=== PATIENT | male | born 1965 | race Caucasian/White ===

== ENCOUNTER 2023-07-14 10:23 | Outpatient (REF) | payer OTHER, SELFPAY ==
[2023-07-14 14:13] LABS: MANUAL DIFF FLAG NO
[2023-07-14 14:20] LABS: Basophils Absolute Auto 0.1 X10*3/uL (0.0-0.2); Eosinophils Absolute Auto 0.2 X10*3/uL (0.0-0.4); Hematocrit 46.9 % (42.0-52.0); Hemoglobin 15.9 g/dl (14.0-18.0); Imm Gran Abs Auto 0.01 X10*3/uL (0.00-0.03); Imm Gran Pct Auto 0.2 % (0.0-0.4); Lymphocytes Absolute Auto 1.8 X10*3/uL (1.2-4.9); Lymphocytes Percent Auto 31.8 % (20-40); Mean Corpuscular HGB Conc 33.9 g/dl (31.0-36.0); Mean Corpuscular Hemoglobin 32.9 pg (27.0-33.0); Mean Corpuscular Volume 96.9 fL (80.0-98.0); Mean Platelet Volume 10.9 fL (9.4-12.4); Monocytes Absolute Auto 0.5 X10*3/uL (0.1-1.2); Monocytes Percent Auto 7.9 % (2-11); Neutrophils Absolute Auto 3.2 x10*3/uL (2.0-8.3); Neutrophils Percent Auto 56.1 % (45-73); Platelet Count 208 X10*3/uL (160-400); Red Blood Count 4.84 X10*6/uL (4.60-5.80); Red Cell Distribution Width 12.4 % (11.0-16.0); White Blood Count 5.7 X10*3/uL (4.8-10.8)
[2023-07-14 14:45] LABS: Alanine Aminotransferase 25 U/L (0-40); Albumin Level 4.3 g/dL (3.5-5.0); Alkaline Phosphatase 50 U/L (39-117); Anion Gap 9 (12-20); Aspartate Amino Transferase 26 U/L (5-37); Bilirubin Direct 0.3 mg/dL (0.0-0.5); Bilirubin Total 1.3 mg/dL (0.0-1.0); Blood Urea Nitrogen 18 mg/dL (9-16); Calcium 9.9 mg/dL (8.4-10.2); Carbon Dioxide 27 mmol/L (22-29); Chloride 108 mmol/L (96-108); Cholesterol 302 mg/dL (<200); Estimated Glomerular Filt Rate > 60; Glucose Fasting 88 mg/dL (60-99); HDL Cholesterol 49 mg/dL (>40); LDL Cholesterol Calculated 234 mg/dL (<100); Potassium 4.1 mmol/L (3.3-5.1); Sodium 140 mmol/L (135-145); Triglycerides 99 mg/dL (<150)
[2023-07-15 08:57] LABS: ~Hepatitis C Antibody Nonreactive (Nonreactive)
[2023-07-18 16:23] LABS: HIV RNA PCR Qn Copies Not Detected Copies/mL; HIV RNA PCR Qn Log Copies Not Detected Log cps/mL
== END 2023-07-14 10:24 | disposition home or self-care (01) ==
LOC: CF 10:23
PROVIDERS: Visit Provider Student in an Organized Health Care Education/Training Program
DX: Z00.00 Encounter for general adult medical examination without abnormal findings (principal); E80.6 Other disorders of bilirubin metabolism; E78.5 Hyperlipidemia, unspecified
CPT/HCPCS: 36415; 80048; 80061; 80076; 85025; 86803; 87536; 87900

== ENCOUNTER 2023-10-11 10:44 | Outpatient (REF) | payer OTHER, SELFPAY ==
[2023-10-11 15:18] LABS: Anion Gap 13 (12-20); Blood Urea Nitrogen 16 mg/dL (9-16); Calcium 9.4 mg/dL (8.4-10.2); Carbon Dioxide 26 mmol/L (22-29); Chloride 106 mmol/L (96-108); Cholesterol 309 mg/dL (<200); Estimated Glomerular Filt Rate > 60; Glucose Fasting 87 mg/dL (60-99); HDL Cholesterol 48 mg/dL (>40); LDL Cholesterol Calculated 242 mg/dL (<100); Potassium 3.9 mmol/L (3.3-5.1); Sodium 141 mmol/L (135-145); Triglycerides 97 mg/dL (<150)
== END 2023-10-11 10:45 | disposition home or self-care (01) ==
LOC: HO.CHCLDS 10:44
PROVIDERS: Visit Provider Student in an Organized Health Care Education/Training Program
DX: Z00.00 Encounter for general adult medical examination without abnormal findings (principal); E80.6 Other disorders of bilirubin metabolism; Z71.3 Dietary counseling and surveillance
CPT/HCPCS: 36415; 80048; 80061

== ENCOUNTER 2024-07-11 09:43 | Outpatient (REF) | payer OTHER, SELFPAY ==
[2024-07-11 13:47] LABS: MANUAL DIFF FLAG NO
[2024-07-11 14:02] LABS: Basophils Absolute Auto 0.1 X10*3/uL (0.0-0.2); Eosinophils Absolute Auto 0.2 X10*3/uL (0.0-0.4); Eosinophils Percent Auto 2.9 % (0-4); Hematocrit 45.6 % (42.0-52.0); Hemoglobin 15.7 g/dl (14.0-18.0); Imm Gran Abs Auto 0.01 X10*3/uL (0.00-0.03); Imm Gran Pct Auto 0.2 % (0.0-0.4); Lymphocytes Absolute Auto 1.8 X10*3/uL (1.2-4.9); Lymphocytes Percent Auto 30.4 % (20-40); Mean Corpuscular HGB Conc 34.4 g/dl (31.0-36.0); Mean Corpuscular Hemoglobin 32.7 pg (27.0-33.0); Mean Platelet Volume 10.4 fL (9.4-12.4); Monocytes Absolute Auto 0.5 X10*3/uL (0.1-1.2); Neutrophils Absolute Auto 3.4 x10*3/uL (2.0-8.3); Neutrophils Percent Auto 57.5 % (45-73); Platelet Count 229 X10*3/uL (160-400); Red Cell Distribution Width 11.9 % (11.0-16.0); White Blood Count 5.9 X10*3/uL (4.8-10.8)
[2024-07-11 14:23] LABS: Alanine Aminotransferase 22 U/L (0-40); Albumin Level 4.2 g/dL (3.5-5.0); Alkaline Phosphatase 49 U/L (39-117); Anion Gap 12 (12-20); Aspartate Amino Transferase 24 U/L (5-37); Bilirubin Direct 0.4 mg/dL (0.0-0.5); Bilirubin Total 1.2 mg/dL (0.0-1.0); Blood Urea Nitrogen 17 mg/dL (9-16); Calcium 9.2 mg/dL (8.4-10.2); Carbon Dioxide 27 mmol/L (22-29); Chloride 106 mmol/L (96-108); Estimated Glomerular Filt Rate > 60; Glucose Fasting 87 mg/dL (60-99); Potassium 3.7 mmol/L (3.3-5.1); Sodium 141 mmol/L (135-145); Total Protein 6.7 g/dL (6.5-8.0)
[2024-07-11 14:43] LABS: TSH reflex Free T4 0.72 uIU/mL (0.32-4.0)
[2024-07-13 10:31] LABS: Cholesterol 276 mg/dL (<200); HDL Cholesterol 46 mg/dL (>40); LDL Cholesterol Calculated 214 mg/dL (<100); Triglycerides 82 mg/dL (<150)
== END 2024-07-11 09:44 | disposition home or self-care (01) ==
LOC: HO.CHCLDS 09:43
PROVIDERS: Visit Provider Internal Medicine
DX: E78.5 Hyperlipidemia, unspecified (principal)
CPT/HCPCS: 36415; 80048; 80061; 80076; 84443; 85025

== ENCOUNTER 2024-10-18 09:07 | Outpatient (REF) | payer OTHER, SELFPAY ==
[2024-10-18 14:51] LABS: Anion Gap 10 (12-20); Blood Urea Nitrogen 15 mg/dL (9-16); Calcium 8.8 mg/dL (8.4-10.2); Carbon Dioxide 28 mmol/L (22-29); Chloride 107 mmol/L (96-108); Estimated Glomerular Filt Rate > 60; Glucose Random 92 mg/dL (60-115); Potassium 3.7 mmol/L (3.3-5.1); Sodium 141 mmol/L (135-145)
[2024-10-18 15:08] LABS: TSH reflex Free T4 1.14 uIU/mL (0.32-4.0)
[2024-10-19 03:44] LABS: HIV AB/AG Nonreactive (Nonreactive); HIV Num 1 0.07 S/CO (0.00-0.99); ~HepC Num1 0.06 S/CO (0.00-0.79); ~Hepatitis C Antibody Nonreactive (Nonreactive)
== END 2024-10-18 09:08 | disposition home or self-care (01) ==
LOC: HO.CHCLDS 09:07
PROVIDERS: Visit Provider Student in an Organized Health Care Education/Training Program
DX: Z00.00 Encounter for general adult medical examination without abnormal findings (principal); E78.2 Mixed hyperlipidemia
CPT/HCPCS: 36415; 80048; 84443; 86803; 87389

== ENCOUNTER 2025-04-09 09:44 | Outpatient (REF) | payer OTHER, SELFPAY ==
--- OUTSIDE RECORDS SUMMARY | 2025-04-09 10:51 | XMS_ITS | Clinical Summary ---
Author Organization [employer] [facility] Address [address] [place] [address] Care Team Providers Care Cargo Service Agent Name Role Phone Marilee Holley MD Primary Care Provider [phone] Allergies Active Allergy Reactions Criticality Noted Date Comments Statins 07/14/2023 Other reaction(s): Muscle cramps, Muscle cramps Medications omega-3 (Fish Oil) 1000 MG capsule Take 1,000 mg by mouth in the morning. Active niacin 100 MG tablet Take 100 mg by mouth with breakfast. Active ezetimibe (Zetia) 10 MG tablet Take 1 tablet (10 mg) by mouth Once per day. 30 tablet 11 07/25/20 24 025 Active pseudoephedrin e (Sudafed) 30 MG tablet Take 1 tablet (30 mg) by mouth every 4 (four) hours if needed for congestion for up to 10 days. 30 tablet 10/18/20 24 Active azelastine (Astelin) 0.1 % nasal spray Administer 1 spray into each nostril 2 times daily. Use in each nostril as directed 30 mL 12 10/18/20 24 025 Discontinued Active Problems Problem Noted Date Diagnosed Date Hyperlipidemia 06/05/2024 Encounters Date Type Department Care Team Description 04/02/2025 Orders Only [facility]EDS [address] [place] [address] Marilee Holley MD Mixed hyperlipidemia (Primary Dx) from Last 3 Months Immunizations Immunization Administration Dates Next Due Tdap 08/21/2024 Family History Medical History Relation Name Comments Heart failure Father Breast cancer Mother Relation Name Status Comments Father Mother Alive Sister Alive Social History Tobacco Use Types Packs/Day Years Used Date Smoking Tobacco: Never Smokeless Tobacco: Never Tobacco Cessation:Counseling Given: Not Answered Alcohol Use Standard Drinks/Week Comments Defer 0 (1 standard drink = 0.6 oz pur e alcohol) Depression Answer Date Recorded Patient Health Questionnaire-9 Score 0 07/14/2023 Housing Stability Answer Date Recorded What is your housing situation today? Not on tapan e 08/21/[address] you li ve. Do you have problems with any of the following? None of the above 08/21/2024 Food Insecurity Answer Date Recorded Within the past 12 months, y ou worried that your food would run out before you got money to buy more: Never True 08/21/2024 Within the past 12 months,th e food you bought just didn't last and you didn't have enough money to get more: Never True Transportation Answer Date Recorded In the past 12 months, has l ack of transportation kept you from medical appts, meetings, work or from getting things needed for daily living? No 08/21/2024 Utilities Answer Date Recorded In the past 12 months, has t he electric, gas, oil or water company threatened to shut off services in your home? No 08/21/2024 Depression Answer Date Recorded Patient Health Questionnaire-2 Score 0 07/14/2023 Internet Access Answer Date Recorded Internet Access Q1 Yes 08/21/2024 Internet Access Q2 Not on file 08/21/2024 Sex and Gender Information Value Date Recorded Sex Assigned at Male 07/12/2023 2:00 PM EDT Legal Sex Male 1:58 PM EDT Gender Identity Male 07/12/2023 1:59 PM EDT Sexual Orientation Straight 07/12/2023 2: 00 PM EDT Last Filed Vital Signs Vital Sign Reading Time Taken Comments Blood Pressure 142/86 10/18/2024 8:44 AM EST Pulse 62 10/18/2024 8:44 AM EST Temperature 36.6 ??C (97.9 ??F) 10/18/2024 8:44 AM ES T Respiratory Rate 12 10/18/2024 8:44 AM EST Oxygen Saturation 96% 10/18/2024 8:44 AM EST Inhaled Oxygen Concentration - - Weight 88.9 kg (196 lb) 10/18/2024 8:44 AM EST Height 182.9 cm (6') 10/18/2024 8:44 AM EST Body Mass Index 26.58 10/18/2024 8:44 AM EST Plan of Treatment Upcoming Encounters Date Type Department Care Team ([facility] st Contact Info) Description 04/30/2025 9:00 AM EDT Office Visit [facility] PEDS [address] [place] [address] Marilee Holley MD [address] [place] [address] Health Maintenance Due Date Last Done Comments CT Colonography 1967 Colonoscopy 1967 Colorectal Cancer Screening 1967 FIT DNA/Cologuard 1967 FIT 1967 FOBT 1967 Sigmoidoscopy 1967 Disability Screening 1967 Alcohol/Substance Use Screening 1979 Hepatitis B Vaccines (1 of 3 - 19+ 3-dose series) 1986 Pneumococcal Vaccine: 50+ Years (1 of 1 - PCV) 2017 Zoster Vaccines (1 of 2) 2017 COVID-19 Vaccine ( - 2023-2 5 season) 2024 01/13/2021, 12/16/2020 Depression Screening 07/14/2024 07/14/2023, 07/14/2023 SDOH Screening 07/14/2024 07/14/2023 Tobacco Screening 06/05/2025 06/05/2024 Influenza Vaccine (Season Ended) 2025 Lipid Panel 07/11/2029 07/11/2024, 10/11/2023, 07/14/2023 DTaP/Tdap/Td Vaccines (2 - T d or Tdap) 08/21/2034 08/21/2024 RSV Patients and Patients Aged 60 years or older (1 - 1-dose 75+ series) 2042 HIV Screening Completed 10/18/2024 Hepatitis C Screening Completed 10/18/2024 , 07/14/2023 HIB Vaccines Aged Out No longer eligi ble based on patient's age to complete this topic HPV Vaccines Aged Out No longer eligi ble based on patient's age to complete this topic Hepatitis A Vaccines Aged Out No long er eligible based on patient's age to complete this topic IPV Vaccines Aged Out No longer eligi ble based on patient's age to complete this topic Meningococcal B Vaccine Aged Out No l onger eligible based on patient's age to complete this topic Meningococcal Vaccine Aged Out No ronald jose manuel eligible based on patient's age to complete this topic RSV under 20 months Aged Out No longe r eligible based on patient's age to complete this topic Rotavirus Vaccines Aged Out No longer eligible based on patient's age to complete this topic Procedures Procedure Name Priority Date/Time Associated Diagnosis Comments HEPATITIS C AB W/REFL TO HCV RNA, QN, PCR Routine 10/18/2024 9:09 AM EST PE (physical exam), annual HIV 1/2 ANTIGEN/ANTIBODY, FOURTH GENERATION W/RFL Routine 10/18/2024 9:09 AM EST PE (physical exam), annual LIPID PANEL, STANDARD Routine 07/11/2024 9:44 AM EDT from Last 3 Months or Most Recently Relevant to Health Maintenance Results * Hepatitis C Antibody with Reflex to HCV, RNA, Quantitative, Real-Time PCR (10/18/2024 9:09 AM EST) Hepatitis C Antibody Nonreactive Nonreactive [facility] Comment:Antibodies to HCV no t detected; does not exclude early acuteHCV infection. Blood Venous blood specimen / Unknown 10/18/2024 9:09 AM EST 10/18/2024 2:28 PM EST us Marilee Holley MD LAB BLOOD ORDERABLES Final Resul t [facility] [address] [place] [phone] * HIV-1/2 Antigen and Antibodies, Fourth Generation, with Reflexes (10/18/2024 9:09 AM EST) HIV AB/AG Nonreactive Nonreactive [facility] Comment:HIV-1 p24 Ag and/or HIV-1/HIV-2 Ab not detected.A test result that is nonreactive does not exclude thepossibility of exposure to or infection with HIV-1 and/orHIV-2. Nonreactive results in this assay for individualswith prior exposure to HIV-1 and/or HIV-2 may be due toantigen and antibody levels that are below the limit ofdetection of this assay.The [employer] HIV Ag/Ab Combo assay result andsupplemental assay results should be interpreted inconjunction with the patient's clinical presentation,history and other laboratory results. If the results areinconsistent with clinical evidence, additional testing issuggested to confirm the result. Blood Venous blood specimen / Unknown 10/18/2024 9:09 AM EST 10/18/2024 2:28 PM EST us Marilee Holley MD LAB BLOOD ORDERABLES Final Resul t [facility] [address] [place] [phone] [phone] * (ABNORMAL) Lipid Panel, Standard (07/11/2024 9:44 AM EDT) Triglycerides 82 <150 mg/dL [facility] Comment:Desirable Triglyceri de: less than 150 mg/dLBorderline High Triglyceride 150-199 mg/dLHigh Triglyceride: 200-499 mg/dLVery High Triglyceride: greater than or equal to 5OO mg/dL Cholesterol 276(H) <200 mg/dL [facility] Comment:Desirable Cholestero l: less than 200 mg/dLBorderline High Cholesterol: 200-239 mg/dLHigh Cholesterol: greater than 239 mg/dL LDL Cholesterol Calculated 214(H) <100 mg/dL [facility] Comment:Desirable LDL: less than 100 mg/dLNear Optimal/Above Optimal LDL: 110- 129 mg/dLBorderline High LDL: 130-159 mg/dLHigh LDL: 160-189 mg/dLVery High LDL: greater than or equal to 190 mg/dL HDL Cholesterol 46 >40 mg/dL [facility] Comment:Desirable HDL: great er than 40 mg/dL Note: This HDL assay may give artificially low results in patients with liver disease. 07/11/2024 9:44 AM EDT 07/11/2024 1:46 PM EDT us Nelda Jenkins MD LAB BLOOD ORDERABLES Final Re sult [facility] [address] [place] [address] [phone] from Last 3 Months or Most Recently Relevant to Health Maintenance Insurance [employer] Care Teams Cargo Service Agent Relationship Specialty Start Date End Date Marilee Holley MD [address] [place] [phone] PCP - General Family Medicine 07/12/23
[2025-04-09 15:01] LABS: Alanine Aminotransferase 28 U/L (0-40); Albumin Level 4.4 g/dL (3.5-5.0); Alkaline Phosphatase 53 U/L (39-117); Anion Gap 9 (12-20); Aspartate Amino Transferase 28 U/L (5-37); Bilirubin Direct 0.3 mg/dL (0.0-0.5); Bilirubin Total 1.3 mg/dL (0.0-1.0); Blood Urea Nitrogen 13 mg/dL (9-16); Calcium 9.2 mg/dL (8.4-10.2); Carbon Dioxide 31 mmol/L (22-29); Chloride 106 mmol/L (96-108); Cholesterol 266 mg/dL (<200); Estimated Glomerular Filt Rate > 60; Glucose Random 91 mg/dL (60-115); HDL Cholesterol 41 mg/dL (>40); LDL Cholesterol Calculated 209 mg/dL (<100); Potassium 3.9 mmol/L (3.3-5.1); Sodium 142 mmol/L (135-145); Total Protein 6.6 g/dL (6.5-8.0); Triglycerides 82 mg/dL (<150)
== END 2025-04-09 09:45 | disposition home or self-care (01) ==
LOC: HO.CHCLDS 09:44
PROVIDERS: Visit Provider Student in an Organized Health Care Education/Training Program
DX: E78.2 Mixed hyperlipidemia (principal)
CPT/HCPCS: 36415; 80048; 80061; 80076

== ENCOUNTER 2025-07-24 08:53 | Outpatient (REF) | payer OTHER, SELFPAY ==
--- NOTE | ~2025-07-24 | US_ITS ---
EXAMINATION: US ABDOMEN COMPLETE CLINICAL INFORMATION: Fatty liver.. COMPARISON: None available. TECHNIQUE: Real-time ultrasound of the abdomen using grayscale technique. FINDINGS: PANCREAS: No peripancreatic fluid collections. ABDOMINAL AORTA: The proximal, and distal segments are normal in caliber. INFERIOR VENA CAVA: Visualized portions are normal. LIVER: Liver measures 19 cm. No nodular surface contour. Coarse echotexture. There is a 3.7 cm lobulated anechoic lesion with peripheral echogenic abnormality. No flow on color Doppler interrogation. No intrahepatic biliary ductal dilatation. GALLBLADDER: Fluid-filled without distention. Gallbladder wall measures 3 mm. No pericholecystic fluid collection. COMMON BILE DUCT: 4 mm. RIGHT KIDNEY: 14 cm. Normal echotexture. Normal renal cortical thickness. No hydronephrosis. There is a 1 cm exophytic anechoic lesion in the upper pole without nodular components were flow on color Doppler interrogation.. LEFT KIDNEY: 13 cm. Normal echotexture. Normal renal cortical thickness. No hydronephrosis. No solid or cystic lesion. SPLEEN: 12 cm no focal mass.. FREE FLUID: None. US/US abdomen complete IMPRESSION: Hepatosplenomegaly. 3.7 cm cystic lesion, right hepatic lobe. Recommend dedicated dynamic enhanced MRI liver. 1 cm simple cyst, right kidney. No cholelithiasis. No ascites. No hydronephrosis. Electronically signed by: Franko Plasencia MD 07/24/2025 10:59 AM EDT
--- OUTSIDE RECORDS SUMMARY | 2025-07-24 10:27 | XMS_ITS | Encounter Summary ---
Author Organization [employer] Address [address] [place] [address] Care Team Providers Care Manager Vehicle Name Role Phone Marilee Holley MD Primary Care Provider [phone] Reason for Visit * Reason Onset Date Comments Appointment Request 08/10/2024 Encounter Details Date Type Department Care Team ([facility] st Contact Info) Description 08/10/2024 Telephone [facility] MEDICINE [address] [place] [address] Marilee Holley MD [address] [place], [place] [phone] Appointment Request Social History Tobacco Use Types Packs/Day Years Used Date Smoking Tobacco: Never Smokeless Tobacco: Never Alcohol Use Standard Drinks/Week Comments Defer 0 (1 standard drink = 0.6 oz pur e alcohol) Depression Answer Date Recorded Patient Health Questionnaire-9 Score 0 07/14/2023 Housing Stability Answer Date Recorded What is your housing situation today? I have sabinamaria luz reina 08/25/[address] you li ve. Do you have problems with any of the following? None of the above 08/25/2023 Food Insecurity Answer Date Recorded Within the past 12 months, y ou worried that your food would run out before you got money to buy more: Never True 08/25/2023 Within the past 12 months,th e food you bought just didn't last and you didn't have enough money to get more: Never True Transportation Answer Date Recorded In the past 12 months, has l ack of transportation kept you from medical appts, meetings, work or from getting things needed for daily living? No 08/25/2023 Utilities Answer Date Recorded In the past 12 months, has t he electric, gas, oil or water company threatened to shut off services in your home? No 08/25/2023 Depression Answer Date Recorded Patient Health Questionnaire-2 Score 0 07/14/2023 Sex and Gender Information Value Date Recorded Sex Assigned at Male 07/12/2023 2:00 PM EDT Legal Sex Male 1:58 PM EDT Gender Identity Male 07/12/2023 1:59 PM EDT Sexual Orientation Straight 07/12/2023 2: 00 PM EDT documented as of this encounter Miscellaneous Notes * Telephone Encounter - Marilee Holley MD - 08/22/2024 8:56 AM EDT ascending * Telephone Encounter - Malia Hall - 08/21/2024 1:53 PM EDT [place] [facility] [place] and was asked if family history of aortic aneurysm is ascending or descending. Please advise, thank you. 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
--- OUTSIDE RECORDS SUMMARY | 2025-07-24 10:27 | XMS_ITS | Clinical Summary ---
Author Organization [facility] Address [address] [facility] [address] [place] [address] Care Team Providers Care Paint Spray Inspector Name Role Phone Marilee Holley MD Primary Care Provider [phone] Allergies Active Allergy Reactions Criticality Noted Date Comments Statins 07/14/2023 Other reaction(s): Muscle cramps, Muscle cramps Medications omega-3 (Fish Oil) 1000 MG capsule Take 1,000 mg by mouth in the morning. Active niacin 100 MG tablet Take 100 mg by mouth with breakfast. Active ezetimibe (Zetia) 10 MG tablet Take 1 tablet (10 mg) by mouth Once per day. 30 tablet 11 07/25/2024 Active Active Problems Problem Noted Date Diagnosed Date Hyperlipidemia 06/05/2024 Encounters Date Type Department Care Team Description 04/30/2025 9:00 AM EDT Office Visit [facility] MED & PEDS [address] [place] [address] Marilee Holley MD Mixed hyperlipidemia (Primary Dx); Fatty liver 04/30/2025 Travel 04/23/2025 Patient Outreach [facility] MEDICINE [address] [place] [address] Marilee Holley MD Pre-visit Planning (SDVT screening unable to complete. ) from Last 3 Months Immunizations Immunization Administration [...] Sign Reading Time Taken Comments Blood Pressure 137/86 04/30/2025 9:21 AM EDT Pulse 68 04/30/2025 9:21 AM EDT Temperature 37.1 C (98.7 F) 04/30/2025 9:21 AM EDT Respiratory Rate 20 04/30/2025 9:21 AM EDT Oxygen Saturation 96% 10/18/2024 8:44 AM EST Inhaled Oxygen Concentration - - Weight 88 kg (194 lb) 04/30/2025 9:21 AM EDT Height 182.9 cm (6') 04/30/2025 9:21 AM EDT Body Mass Index 26.31 04/30/2025 9:21 AM EDT Plan of Treatment Health Maintenance Due Date Last Done Comments CT Colonography 1967 Colonoscopy 1967 Colorectal Cancer Screening 1967 FIT DNA/Cologuard 1967 FIT 1967 FOBT 1967 Sigmoidoscopy 1967 Disability Screening 1967 Alcohol/Substance Use Screening 1979 Hepatitis A Vaccines (1 of 2 - Risk 2-dose series) 1986 Hepatitis B Vaccines (1 of 3 - 19+ 3-dose series) 1986 Pneumococcal Vaccine: 50+ Years (1 of 1 - PCV) 2017 Zoster Vaccines (1 of 2) 2017 Depression Screening 07/14/2024 07/14/2023, 07/14/20 23 SDOH Screening 07/14/2024 07/14/2023 Tobacco Screening 06/05/2025 06/05/2024 COVID-19 Vaccine ( - season) 2025 01/13/2021, 12/16/2020 Influenza Vaccine (#1) 2025 Lipid Panel 04/09/2030 04/09/2025, 07/01, 10/11/2023, Additional history exists DTaP/Tdap/Td Vaccines (2 - Td or Tdap) 08/21/2034 08/21/2024 RSV Patients and Patients Aged 60 years or older (1 - 1-dose 75+ series) 2042 HIV Screening Completed 10/18/2024 Hepatitis C Screening Completed 10/18/2024, 023 HIB Vaccines Aged Out No longer eligi [...] Procedure Name Priority Date/Time Associated Diagnosis Comments LIPID PANEL, STANDARD Routine 04/09/2025 12:00 AM EDT Mixed hyperlipidemia HEPATITIS C AB W/REFL TO HCV RNA, QN, PCR Routine 10/18/2024 9:09 AM EST PE (physical exam), annual HIV 1/2 ANTIGEN/ANTIBODY, FOURTH GENERATION W/RFL Routine 10/18/2024 9:09 AM EST PE (physical exam), annual from Last 3 Months or Most Recently Relevant to Health Maintenance Results * (ABNORMAL) Lipid Panel, Standard (04/09/2025 12:00 AM EDT) Triglycerides 82 <150 mg/dL [facility] Comment:Desirable Triglyceri de: less than 150 mg/dLBorderline High Triglyceride 150-199 mg/dLHigh Triglyceride: 200-499 mg/dLVery High Triglyceride: greater than or equal to 5OO mg/dL Cholesterol 266(H) <200 mg/dL [facility] Comment:Desirable Cholestero l: less than 200 mg/dLBorderline High Cholesterol: 200-239 mg/dLHigh Cholesterol: greater than 239 mg/dL LDL Cholesterol Calculated 209(H) <100 mg/dL [facility] Comment:Desirable LDL: less than 100 mg/dLNear Optimal/Above Optimal LDL: 110- 129 mg/dLBorderline High LDL: 130-159 mg/dLHigh LDL: 160-189 mg/dLVery High LDL: greater than or equal to 190 mg/dL HDL Cholesterol 41 >40 mg/dL [facility] Comment:Desirable HDL: great er than 40 mg/dL Note: This HDL assay may give artificially low results in patients with liver disease. Blood Venous blood specimen / Unknown 04/09/2025 04/09/2025 us Marilee Holley MD LAB BLOOD ORDERABLES Final Resul t [facility] [address] [place] [phone] * Hepatitis C Antibody with Reflex to HCV, RNA, Quantitative, Real-Time PCR (10/18/2024 9:09 AM EST) Hepatitis C Antibody Nonreactive Nonreactive [facility] Comment:Antibodies to HCV no t detected; does not exclude early acuteHCV infection. Blood Venous blood specimen / Unknown 10/18/2024 9:09 AM EST 10/18/2024 2:28 PM EST Marilee Holley MD LAB BLOOD ORDERABLES Final Resul t Performing Organization Address [facility] Co de Phone Number [facility] [address] [place] [phone] [phone] * HIV-1/2 Antigen and Antibodies, Fourth Generation, with Reflexes (10/18/2024 9:09 AM EST) HIV AB/AG Nonreactive Nonreactive [facility] Comment:HIV-1 p24 Ag and/or HIV-1/HIV-2 Ab not detected.A test result that is nonreactive does not exclude thepossibility of exposure to or infection with HIV-1 and/orHIV-2. Nonreactive results in this assay for individualswith prior exposure to HIV-1 and/or HIV-2 may be due toantigen and antibody levels that are below the limit ofdetection of this assay.The [email or web address] HIV Ag/Ab Combo assay result andsupplemental assay results should be interpreted inconjunction with the patient's clinical presentation,history and other laboratory results. If the results areinconsistent with clinical evidence, additional testing issuggested to confirm the result. Blood Venous blood specimen / Unknown 10/18/2024 9:09 AM EST 10/18/2024 2:28 PM EST Marilee Holley MD LAB BLOOD ORDERABLES Final Resul t Performing Organization Address [facility] Co de Phone Number [facility] [address] [place] [address] [phone] from Last 3 Months or Most Recently Relevant to Health [place] [id number] Care Teams Paint Spray Inspector Relationship Specialty Start Date End Date Marilee Holley MD [address] [place] [address] PCP - General Family Medicine 07/12/23
== END 2025-07-24 08:54 | disposition home or self-care (01) ==
LOC: HO.HMGCX 08:53
PROVIDERS: PCP Student in an Organized Health Care Education/Training Program; Visit Provider Student in an Organized Health Care Education/Training Program
DX: K76.0 Fatty (change of) liver, not elsewhere classified (principal)
CPT/HCPCS: 76700

== ENCOUNTER → 2025-07-24 08:55 | Outpatient (BNV) | payer OTHER, SELFPAY | PROVIDERS: PCP Student in an Organized Health Care Education/Training Program; Visit Provider Radiology Diagnostic Radiology | DX: R16.2 Hepatomegaly with splenomegaly, not elsewhere classified (principal) | CPT/HCPCS: 76700 ==

== ENCOUNTER 2025-10-21 07:18 | Outpatient (REF) | payer OTHER, SELFPAY ==
--- NOTE | ~2025-10-21 | MR_ITS ---
EXAMINATION: MR ABDOMEN WITHOUT IV CONTRAST HISTORY: LIVER MASS, PT REFUSES CONTRAST COMPARISON: Correlation is made with an abdominal ultrasound dated 07/24/2025. TECHNIQUE: Axial in and out of phase T1-weighted gradient echo, axial diffusion weighted, and axial and coronal HASTE T2 with fat saturation images were obtained through the abdomen. The patient refused intravenous contrast administration. FINDINGS: Liver: There is no loss of signal intensity in the liver on opposed phase imaging to suggest steatosis. There is a 3.6 x 3.0 x 2.4 cm probable septated cyst in the right lobe. Scattered smaller probable cysts are noted throughout the liver. There is no intrahepatic biliary dilatation. Gallbladder/biliary tree: No gallstones are identified. The common bile duct is normal in caliber. No intraluminal filling defects are identified to suggest choledocholithiasis. Spleen: The spleen is unremarkable. Pancreas: The pancreas is unremarkable without intravenous contrast. The pancreatic duct is normal in caliber. Adrenals: The adrenal glands are unremarkable. Kidneys: There are tiny probable bilateral renal cysts. There is no hydronephrosis. Lymph nodes: There is no retroperitoneal lymphadenopathy in the upper abdomen. Fluid: There is no ascites in the upper abdomen. Visualized bowel: The visualized small and large bowel loops are unremarkable in appearance. Visualized bones: The visualized bones demonstrate normal marrow signal intensity. There is a mild compression deformity of T8. MR/MR abdomen wo con IMPRESSION: 3.6 x 3.0 x 2.4 cm probable septated cyst in the right lobe of the liver. Evaluation is limited by lack of intravenous contrast material. Continued follow-up with ultrasound is recommended. Electronically signed by: Ludin Aguilar MD 10/21/2025 09:03 AM [facility]
--- OUTSIDE RECORDS SUMMARY | 2025-10-21 07:28 | XMS_ITS | Clinical Summary ---
Author Organization [facility] Address [address] [place] [address] [address] [address] Care Team Providers Care Chiropractor Sole Practitioner Name Role Phone Aravind Herzog CNP Primary Care Provider [phone] Allergies Active Allergy Reactions Criticality Noted Date [...] Encounters Date Type Department Care Team Description 10/02/2025 Orders Only [facility] [address] [place] [address] Aravind Herzog CNP Liver mass (Primary Dx) 09/25/2025 Orders Only [facility] [address] [place], [place] [phone] Aravind Herzog CNP Fatty liver (Primary Dx); Liver mass 09/25/2025 Telephone [facility] [facility] [address] [place], [place] [phone] Aravind Herzog CNP MRI LIVER ORDER 08/12/2025 Results Follow-Up [facility] [address] [place] [address] Marilee Holley MD US Abdomen Complete 08/12/2025 Orders Only [facility] [address] [place] [address] Marilee Holley MD Hepatic cyst (Primary Dx) from Last 3 Months Immunizations [...] Years (1 of 1 - PCV) 2017 RSV Patients and Patients Aged 60 years or older (1 - Risk 50-74 years 1-dose series) 2017 Zoster Vaccines (1 of 2) 2017 Depression Screening 07/14/2024 07/14/2023, 07/14/20 23 SDOH Screening 07/14/2024 07/14/2023 Tobacco Screening 06/05/2025 06/05/2024 COVID-19 Vaccine ( - season) 2025 01/13/2021, 12/16/2020 Influenza Vaccine (#1) 2025 Lipid Panel 04/09/2030 04/09/2025, 07/01, 10/11/2023, Additional history exists DTaP/Tdap/Td Vaccines (2 - Td or Tdap) 08/21/2034 08/21/2024 HIV Screening Completed 10/18/2024 Hepatitis C Screening [...] Procedure Name Priority Date/Time Associated Diagnosis Comments US ABDOMEN COMPLETE Routine 07/24/2025 8 :58 AM EDT Fatty liver LIPID PANEL, STANDARD Routine 04/09/2025 12:00 AM EDT Mixed hyperlipidemia HEPATITIS C AB W/REFL TO HCV RNA, QN, PCR Routine 10/18/2024 9:09 AM EST PE (physical exam), annual HIV 1/2 ANTIGEN/ANTIBODY, FOURTH GENERATION W/RFL Routine 10/18/2024 9:09 AM EST PE (physical exam), annual from Last 3 Months or Most Recently Relevant to Health Maintenance Results * US Abdomen Complete (07/24/2025 8:58 AM EDT) Anatomical Region Laterality Modality Abdomen Ultrasound 07/24/2025 8:58 AM EDT Narrative 07/24/2025 11:02 AM EDT [facility] [address] [place] [address] [place] [address] Ultrasound Report Signed Patient: Jodi Marion MR#: [id number] 7 : 1965 Acct:[id number] Age/Sex: 60 / M ADM Date: 07/24/25 Loc: HO.HMGCX Attending Dr: Marilee Holley MD Ordering Physician: Marilee Holley MD Date of Service: 07/24/25 Procedure(s): US abdomen complete Accession Number(s): [id number] cc: Marilee Holley MD Reason for Exam: fatty liver EXAMINATION: US ABDOMEN COMPLETE CLINICAL INFORMATION: Fatty liver.. COMPARISON: None available. TECHNIQUE: Real-time ultrasound of the abdomen using grayscale technique. FINDINGS: PANCREAS: No peripancreatic fluid collections. ABDOMINAL AORTA: The proximal, and distal segments are normal in caliber. INFERIOR VENA CAVA: Visualized portions are normal. LIVER: Liver measures 19 cm. No nodular surface contour. Coarse echotexture. There is a 3.7 cm lobulated anechoic lesion with peripheral echogenic abnormality. No flow on color Doppler interrogation. No intrahepatic biliary ductal dilatation. GALLBLADDER: Fluid-filled without distention. Gallbladder wall measures 3 mm. No pericholecystic fluid collection. COMMON BILE DUCT: 4 mm. RIGHT KIDNEY: 14 cm. Normal echotexture. Normal renal cortical thickness. No hydronephrosis. There is a 1 cm exophytic anechoic lesion in the upper pole without nodular components were flow on color Doppler interrogation.. LEFT KIDNEY: 13 cm. Normal echotexture. Normal renal cortical thickness. No hydronephrosis. No solid or cystic lesion. SPLEEN: 12 cm no focal mass.. FREE FLUID: None. US/US abdomen complete IMPRESSION: Hepatosplenomegaly. 3.7 cm cystic lesion, right hepatic lobe. Recommend dedicated dynamic enhanced MRI liver. 1 cm simple cyst, right kidney. No cholelithiasis. No ascites. No hydronephrosis. Electronically signed by: Franko Plasencia MD 07/24/2025 10:59 AM EDT Dictated By: Franko Horn MD Signed By: <Electronically signed by Franko Saenz MD in OV> 07/24/25 1059 DD/ 0858 TD/TT: 07/24/25 0915 Nuclear Physics Teacher: Procedure Note Donotuseinterpreter, Image - 07/24/2025 [facility] [place] [facility] [place] [address] Ultrasound Report Signed Patient: Shar Marion#: [id number] 7 : 1965Acct:[id number] Age/Sex: 60 / MADM Date: 07/24/25 Loc: HO.HMGCX Attending Dr: Marilee Holley MD Ordering Physician: Marilee Holley MD Date of Service: 07/24/25 Procedure(s): US abdomen complete Accession Number(s): [id number] cc: Marilee Holley MD Reason for Exam: fatty liver EXAMINATION: US ABDOMEN COMPLETE CLINICAL INFORMATION: Fatty liver.. COMPARISON: None available. TECHNIQUE: Real-time ultrasound of the abdomen using grayscale technique. FINDINGS: PANCREAS: No peripancreatic fluid collections. ABDOMINAL AORTA: The proximal, and distal segments are normal in caliber. INFERIOR VENA CAVA: Visualized portions are normal. LIVER: Liver measures 19 cm. No nodular surface contour. Coarse echotexture. There is a 3.7 cm lobulated anechoic lesion with peripheral echogenic abnormality. No flow on color Doppler interrogation. No intrahepatic biliary ductal dilatation. GALLBLADDER: Fluid-filled without distention. Gallbladder wall measures 3 mm. No pericholecystic fluid collection. COMMON BILE DUCT: 4 mm. RIGHT KIDNEY: 14 cm. Normal echotexture. Normal renal cortical thickness. No hydronephrosis. There is a 1 cm exophytic anechoic lesion in the upper pole without nodular components were flow on color Doppler interrogation.. LEFT KIDNEY: 13 cm. Normal echotexture. Normal renal cortical thickness. No hydronephrosis. No solid or cystic lesion. SPLEEN: 12 cm no focal mass.. FREE FLUID: None. US/US abdomen complete IMPRESSION: Hepatosplenomegaly. 3.7 cm cystic lesion, right hepatic lobe. Recommend dedicated dynamic enhanced MRI liver. 1 cm simple cyst, right kidney. No cholelithiasis. No ascites. No hydronephrosis. Electronically signed by: Franko Plasencia MD 07/24/2025 10:59 AM EDT Dictated By: Franko Horn MD Signed By: <Electronically signed by Franko Saenz MDin OV> 07/24/25 1059 DD/ 0858 TD/TT: 07/24/25 0915 Nuclear Physics Teacher: Marilee Holley MD IM US PROCEDURES Final Result * (ABNORMAL) Lipid Panel, Standard (04/09/2025 12:00 AM EDT) Triglycerides 82 <150 mg/dL [facility] Comment:Desirable Triglyceri de: less than 150 mg/dLBorderline High Triglyceride 150-199 mg/dLHigh Triglyceride: 200-499 mg/dLVery High Triglyceride: greater than or equal to 5OO mg/dL Cholesterol 266(H) <200 mg/dL [facility] Comment:Desirable Cholestero l: less than 200 mg/dLBorderline High Cholesterol: 200-239 mg/dLHigh Cholesterol: greater than 239 mg/dL LDL Cholesterol Calculated 209(H) <100 mg/dL [facility] Comment:Desirable LDL: less than 100 mg/dLNear Optimal/Above Optimal LDL: 110- 129 mg/dLBorderline High LDL: 130-159 mg/dLHigh LDL: 160-189 mg/dLVery High LDL: greater than or equal to 190 mg/dL HDL Cholesterol 41 >40 mg/dL [facility] Comment:Desirable HDL: great er than 40 mg/dL Note: This HDL assay may give artificially low results in patients with liver disease. Blood Venous blood specimen / Unknown 04/09/2025 04/09/2025 Marilee Holley MD LAB BLOOD ORDERABLES Final Resul t Performing Organization Address [facility] Co de Phone Number [facility] [address] [place] [phone] * Hepatitis C Antibody with Reflex to HCV, RNA, Quantitative, Real-Time PCR (10/18/2024 9:09 AM EST) Hepatitis C Antibody Nonreactive Nonreactive [facility] Comment:Antibodies to HCV no t detected; does not exclude early acuteHCV infection. Blood Venous blood specimen / Unknown 10/18/2024 9:09 AM EST 10/18/2024 2:28 PM EST Marilee Holley MD LAB BLOOD ORDERABLES Final Resul t Performing Organization Address [facility] Co de Phone Number [facility] [address] [place] [phone] * HIV-1/2 Antigen and Antibodies, Fourth Generation, with Reflexes (10/18/2024 9:09 AM EST) HIV AB/AG Nonreactive Nonreactive [facility] Comment:HIV-1 p24 Ag and/or HIV-1/HIV-2 Ab not detected.A test result that is nonreactive does not exclude thepossibility of exposure to or infection with HIV-1 and/orHIV-2. Nonreactive results in this assay for individualswith prior exposure to HIV-1 and/or HIV-2 may be due toantigen and antibody levels that are below the limit ofdetection of this assay.The [employer] HIV Ag/Ab Combo assay result andsupplemental assay results should be interpreted inconjunction with the patient's clinical presentation,history and other laboratory results. If the results areinconsistent with clinical evidence, additional testing issuggested to confirm the result. Blood Venous blood specimen / Unknown 10/18/2024 9:09 AM EST 10/18/2024 2:28 PM EST us Marilee Holley MD LAB BLOOD ORDERABLES Final Resul t [facility] [address] [place] [address] [phone] from Last 3 Months or Most Recently Relevant to Health Maintenance Insurance [employer] Care Teams Chiropractor Sole Practitioner Relationship Specialty Start Date End Date Aravind Herzog CNP [address] [place] [address] PCP - General Family Medicine 08/28/25
--- OUTSIDE RECORDS SUMMARY | 2025-10-21 07:28 | XMS_ITS | Encounter Summary ---
Author Organization [employer] Address [address] [facility] [address] [place] [address] Care Team Providers Care Hydroelectric Plant Maintainer Name Role Phone Marilee Holley MD Primary Care Provider [phone] Aravind Herzog CNP Primary Care Provider [phone] Reason for Visit * Reason Onset Date Comments Appointment Request 08/10/2024 Encounter Details Date Type Department Care Team ([facility] st Contact Info) Description 08/10/2024 Telephone [facility] [address] [place] [address] Marilee Holley MD [address] [place], [place] [phone] Appointment Request Social History Tobacco Use Types Packs/Day Years Used Date Smoking Tobacco: Never Smokeless Tobacco: Never Alcohol Use Standard Drinks/Week Comments Defer 0 (1 standard drink = 0.6 oz pur e alcohol) Depression Answer Date Recorded Patient Health Questionnaire-9 Score 0 07/14/2023 Housing Stability Answer Date Recorded What is your housing situation today? I have sabina reina 08/25/[address] you [...] - 08/21/2024 1:53 PM EDT Tc to [facility] cardiology to schedule appointment and was asked if family history of aortic aneurysm is ascending or descending. Please advise, thank you. * Telephone Encounter - Erick Lora - 08/10/2024 12:21 PM EDT Tc from patient calling to cancel appt for 08/16 states can not have appt for loan underwriter did attempt to reschedule however there is no availability documented in this encounter Plan of Treatment Not on file documented as of this encounter Visit Diagnoses Not on filedocumented in this encounter Additional Health Concerns Assessment Noted Time PHQ-9 Depression Total Score: 0 07/14/20 9:52 AM EDT documented as of this encounter Care Teams Hydroelectric Plant Maintainer Relationship Specialty Start Date End Date Marilee Holley MD [address] [place] [phone] PCP - General Family Medicine 07/12/23 08/27/25 Aravind Herzog CNP [address] [place] [phone] PCP - General Family Medicine 08/28/25 documented as of this encounter
== END 2025-10-21 07:19 ==
LOC: HO.MRI 07:18
DX: K76.89 Other specified diseases of liver (principal); R16.0 Hepatomegaly, not elsewhere classified
CPT/HCPCS: 74181

== ENCOUNTER → 2025-10-21 07:51 | Outpatient (BNV) | payer OTHER, SELFPAY | PROVIDERS: Visit Provider Radiology Diagnostic Radiology | DX: K76.89 Other specified diseases of liver (principal) | CPT/HCPCS: 74181 ==